=== PATIENT | female | born 1980 | race Two or more races ===

== ENCOUNTER 2018-09-03 19:38 | Emergency (ER) | payer OTHER ==
[~2018-09-03] VITALS: Ht 167.6 cm; Wt 80.3 kg
[2018-09-03] MEDS ORDERED: MULTI VITAMIN1 EACH (19:48)
== END 2018-09-03 22:24 | disposition home or self-care (01) ==
LOC: ER 19:38
DX: M62.830 Muscle spasm of back (principal); K59.09 Other constipation; M54.2 Cervicalgia